=== PATIENT | female | born 1970 | race Caucasian/White ===

== ENCOUNTER 2017-12-06 10:33 | Emergency (ER) | payer BC ==
[2017-12-06 10:53] VITALS: BP 122/62
--- NOTE | 2017-12-06 11:16 | UC ---
Lower Extremity/Ankle HPI - HPI Summary HPI Summary: Pt presents with left foot/big toe pain. She tells me that on 11/26 she was moving her washer and dropped it on her foot. Had immediate pain. Has been ambulating without assistance since that time, but is still painful. Wanted to make sure nothing in the joint was fractured. Denies numbness or tingling. - History of Current Complaint Chief Complaint: UCLowerExtremity Stated Complaint: FOOT INJURY Time Seen by Provider: 12/06/17 11:15 Hx Obtained From: Patient Hx Last Menstrual Period: 08/2017 Onset/Duration: Sudden Onset Severity Initially: Moderate Severity Currently: Mild Pain Intensity: 3 Pain Scale Used: 0-10 Numeric - Allergies/Home Medications Allergies/Adverse Reactions: Allergies Allergy/AdvReac Type Severity Reaction Status Date / Time No Known Allergies Allergy Verified 12/06/17 10:45 Home Medications: Home Medications Cetirizine* [ZyrTEC 10 MG TAB*] 1 tab PO DAILY PRN 12/06/17 [History Confirmed 12/06/17] Cyanocobalamin INJ * [Vitamin B12 INJ *] 1 inj IM SEE INSTRUCTIONS 12/06/17 [ History Confirmed 12/06/17] Progesterone CAP (NF) [Prometrium (NF)] 1 tab PO DAILY 12/06/17 [History Confirmed 12/06/17] PMH/Surg Hx/FS Hx/Imm Hx - Additional Past Medical History Additional PMH: Allergies Vit B12 def - Surgical History Surgical History: Yes Surgery Procedure, Year, and Place: 03/2012- LEFT HAND SURGERY. TONSILLECTOMY- 1993. WISDOM TEETH-1989 - Family History Known Family History: Positive: None - Social History Occupation: Employed Full-time Lives: With Family Alcohol Use: Occasionally Substance Use Type: None Smoking Status (MU): Never Smoked Tobacco Review of Systems Constitutional: Negative Skin: Negative Respiratory: Negative Cardiovascular: Negative Gastrointestinal: Negative Neurovascular: Negative Musculoskeletal: Other: - Left big toe pain Neurological: Negative Psychological: Negative All Other Systems Reviewed And Are Negative: Yes Physical Exam - Summary Physical Exam Summary: GENERAL: NAD. WDWN. No pain distress. SKIN: No rashes, sores, lesions, or open wounds. NECK: Supple. Nontender. No lymphadenopathy. CHEST: No accessory muscle use. Breathing comfortably and in no distress. CV: RRR. Without m/r/g. Pulses intact PT and DP. Brisk cap refill. MSK: Left foot: At the base of the 1st MTP there is mild TTP and overlying ecchymosis. FROM. No edema or obvious bony deformities. NEURO: Alert. Sensations intact and symmetric B/L LEs PSYCH: Age appropriate behavior. Triage Information Reviewed: Yes Vital Signs: Initial Vital Signs Temp 100.1 F 12/06/17 10:47 Pulse 74 12/06/17 10:47 Resp 16 12/06/17 10:47 BP 122/62 12/06/17 10:47 Pulse Ox 100 12/06/17 10:47 Lower Extremity Course/Dx - Course Course Of Treatment: XR: IMPRESSION: COMMINUTED NONDISPLACED FRACTURE OF THE DISTAL PHALANX OF THE GREAT TOE. Pt did not want treatment or orthopedic referral. She elected to continue with ice and ibuprofen. - Differential Dx/Diagnosis Provider Diagnoses: COMMINUTED NONDISPLACED FRACTURE OF THE DISTAL PHALANX OF THE GREAT TOE Discharge - Sign-Out/Discharge Documenting (check all that apply): Discharge/Admit/Transfer - Discharge Plan Condition: Stable Disposition: HOME Patient Education Materials: Toe Fracture (ED) Referrals: Shyam Taylor MD [Primary Care Provider] - Additional Instructions: If you develop a fever, shortness of breath, chest pain, new or worsening symptoms - please call your PCP or go to the ED. - Billing Disposition and Condition Condition: STABLE Disposition: HOME
--- NOTE | 2017-12-06 11:41 | RAD ---
INDICATION: Left foot injury. TECHNIQUE: 3 views of the left foot were obtained. FINDINGS: There is soft tissue swelling in the great toe. There is a slightly comminuted nondisplaced fracture of the distal phalanx of the great toe. Joint spaces appear maintained. IMPRESSION: COMMINUTED NONDISPLACED FRACTURE OF THE DISTAL PHALANX OF THE GREAT TOE.
== END 2017-12-06 11:56 | disposition home or self-care (01) ==
LOC: UCEAST 10:33
DX: S92.425A Nondisplaced fracture of distal phalanx of left great toe, initial encounter for closed fracture (principal); W31.89XA Contact with other specified machinery, initial encounter; Y93.89 Activity, other specified; Y92.008 Other place in unspecified non-institutional (private) residence as the place of occurrence of the external cause; E53.8 Deficiency of other specified B group vitamins
CPT/HCPCS: 99211; G0463